=== PATIENT | female | born 1965 | race Caucasian/White ===

== ENCOUNTER 2019-11-27 10:02 | Emergency (ER) | payer BC ==
[2019-11-27] MEDS ORDERED: AMPICILLIN SOD/SULBACTAM 3 GM VIAL IV ONE (10:15)
[2019-11-27] MEDS ORDERED: OXYCODONE-ACETAMINOPHEN 5-325 MG TABLET PO ONE (10:15)
--- NOTE | 2019-11-27 10:17 | ER Document Report ---
ED Medical Screen (RME) - General Chief Complaint: Jaw Pain Stated Complaint: JAW PAIN Time Seen by Provider: 11/27/19 10:08 Primary Care Provider: NATALEE MEEKS MD [Primary Care Provider] - Follow up as needed Information source: Patient Notes: Patient presents complaining of left lower jaw dental pain for the past week. Patient states that she developed swelling yesterday that has worsened today. Patient complains of swelling to the left jaw and under the mandibular area and complains of difficulty swallowing. Patient states she has difficulty opening her mouth all the way. Patient states that she felt as though her airway was closing up at home which prompted her visit here today. Patient reports starting amoxicillin 3 days ago from her dental care provider. I have greeted and performed a rapid initial assessment of this patient. A comprehensive ED assessment and evaluation of the patient, analysis of test results and completion of the medical decision making process will be conducted by additional ED providers. TRAVEL OUTSIDE OF THE [place] IN LAST 30 DAYS: No - Related Data Allergies/Adverse Reactions: morphine Allergy (Verified 11/27/19 10:08) Physical Exam - General Notes: Patient with trismus, patient with swelling to the left submandibular and submental area with erythema noted to the anterior aspect of the neck. Patient able to manage oral secretions Doctor's Discharge - Discharge Referrals: NATALEE MEEKS MD [Primary Care Provider] - Follow up as needed
[2019-11-27 10:41] LABS: ABSOLUTE EOSINOPHILS # (AUTO) 0.2 10^3/uL (0.0-0.6); ABSOLUTE LYMPHOCYTES (AUTO) 1.4 10^3/uL (0.5-4.7); ABSOLUTE MONOCYTES (AUTO) 0.7 10^3/uL (0.1-1.4); ABSOLUTE NEUT (AUTO) 5.8 10^3/uL (1.7-8.2); BASOPHILS % (AUTO) 0.2 % (0-2); EOSINOPHILS % (AUTO) 1.9 % (0-6); HEMATOCRIT 39.2 % (36.0-47.0); HEMOGLOBIN 13.3 g/dL (12.0-15.5); LYMPHOCYTES % (AUTO) 17.5 % (13-45); MEAN CORPUSCULAR VOLUME 85 fl (80-97); MONOCYTES % (AUTO) 8.2 % (3-13); PLATELET COUNT 229 10^3/uL (150-450); RED CELL DISTRIBUTION WIDTH 14.7 % (11.5-14.0); SEGMENTED NEUTROPHILS % (AUTO) 72.2 % (42-78); TOTAL CELLS COUNTED % (AUTO) 100 %
[2019-11-27 11:04] LABS: ANION GAP 6 (5-19); BLOOD UREA NITROGEN 7 mg/dL (7-20); CALCIUM 9.1 mg/dL (8.4-10.2); CARBON DIOXIDE 29 mmol/L (22-30); CHLORIDE 103 mmol/L (98-107); GLUCOSE 114 mg/dL (75-110); POTASSIUM 4.3 mmol/L (3.6-5.0)
--- NOTE | 2019-11-27 11:54 | RADIOLOGY REPORT (SQ) ---
EXAM DESCRIPTION: CT SOFT TISSUE NECK WITH IMAGES COMPLETED DATE/TIME: 11/27/2019 11:35 am REASON FOR STUDY: dental infection, ?early ludwigs COMPARISON: None. TECHNIQUE: Post IV contrasted scanning from skull base through lung apices with review of bone, soft tissue and lung windows. Reconstructed coronal and sagittal MPR images reviewed. All images stored on PACS. All CT scanners at this facility use dose modulation, iterative reconstruction, and/or weight based d osing when appropriate to reduce radiation dose to as low as reasonably achievable (ALARA). [facility]: Dose Right [facility]: CareDose [facility]: Dose Right [facility]: Teradose 4D [facility]: [place] CONTRAST TYPE AND DOSE: contrast/concentration: Isovue 350.00 mg/ml; Total Contrast Delivered: 75.0 ml; Total Saline Delivered: 55.0 ml RENAL FUNCTION: GFR > 60. RADIATION DOSE: CT Rad equipment meets quality standard of care and radiation dose reduction techniq ues were employed. CTDIvol: 18.5 mGy. DLP: 584 mGy-cm. . LIMITATIONS: None. FINDINGS: SKULL BASE: Intact. MAJOR SALIVARY GLANDS: No solid or cystic masses. No inflammatory changes. LYMPHADENOPATHY: Several subcentimeter left submandibular nodes. No pathologically enlarged lymph no lili. MUCOSAL MASSES OR ASYMMETRY: Inflammatory changes in the sub mandibular fat to left of midline. No a bscess. LARYNX/CORDS: No abnormal findings. VASCULAR STRUCTURES: The major vessels are patent. LUNG APICES: Clear. BONES: Intact. THYROID: Normal size. No masses. PARANASAL SINUSES: Clear. OTHER: No other significant finding. IMPRESSION: Cellulitis. No evidence of abscess or airway compromise. TECHNICAL DOCUMENTATION: JOB ID: [id number] Quality ID # [id number]: Final reports with documentation of one or more dose reduction techniques (e.g., Au tomated exposure control, adjustment of the mA and/or kV according to patient size, use of iterative reconstruction technique) 2010 [employer]- All Rights Reserved Reading location - IP/workstation name: [email or web address]
[2019-11-27] MEDS ORDERED: CLINDAMYCIN 600 MG/D5W RTU 600 MG/50 ML RTUPB IV ONE (11:56)
[2019-11-27] MEDS ORDERED: KETOROLAC TROMETHAMINE INJ/PF 30 MG/1 ML SDV IV ONE (11:57)
--- NOTE | 2019-11-27 11:57 | ER Document Report ---
Entered by ELVIA HOFFMANN SCRIBE 11/27/19 1059 Acting as scribe for:JADE MATIAS MD ED Oral Problem - General Chief Complaint: Jaw Pain Stated Complaint: JAW PAIN Time Seen by Provider: 11/27/19 10:08 Primary Care Provider: NATALEE MEEKS MD [Primary Care Provider] - Follow up as needed Mode of Arrival: Ambulatory Information source: Patient Notes: This 54 year old female patient presents to the emergency department today with complaints of left sided jaw swelling with associated dental pain. Patient reports that this jaw swelling has been progressively getting worse since 11/19. Patient reports that she called her dentist and was started on antibiotics on but she has not gotten much relief. Patient denies fevers. TRAVEL OUTSIDE OF THE [place] IN LAST 30 DAYS: No - Related Data Allergies/Adverse Reactions: morphine Allergy (Verified 11/27/19 10:08) Past Medical History - General Information source: Patient - Social History Smoking Status: Current Every Day Smoker Cigarette use (# per day): Yes Frequency of alcohol use: None Drug Abuse: None Lives with: Family Family History: Reviewed & Not Pertinent Patient has suicidal ideation: No Patient has homicidal ideation: No Endocrine Medical History: Reports: Hx Diabetes Mellitus Type 2 Past Surgical History: Reports: Hx Adenoidectomy, Hx Gastric Bypass Surgery - Stanton-en-y, Hx Myringotomy, Hx Tonsillectomy Review of Systems - Review of Systems Constitutional: No symptoms reported EENT: See HPI, Mouth pain, Mouth swelling, Dental problem Cardiovascular: No symptoms reported Respiratory: No symptoms reported Gastrointestinal: No symptoms reported Genitourinary: No symptoms reported Female Genitourinary: No symptoms reported Musculoskeletal: No symptoms reported Skin: No symptoms reported Hematologic/Lymphatic: No symptoms reported Neurological/Psychological: No symptoms reported -: Yes All other systems reviewed and negative Physical Exam - Vital signs Vitals: Temp Pulse Resp BP Pulse Ox 99.0 F 88 16 115/83 96 11/27/19 10:06 11/27/19 10:06 11/27/19 10:06 11/27/19 10:06 11/27/19 10:06 Interpretation: Normal - General General appearance: Appears well, Alert - HEENT Head: Normocephalic, Atraumatic Eyes: Normal Pupils: PERRL Mouth/Lips: Other - Will only open mouth to about 2 cm of anterior teeth separation. The left lower first molar is very tender to percuss. There is some swelling to the gum tissue on either side of that molar. There is no obvious abscess palpated. Notes: Left mandible area over the lower first molar is swollen and tender. There is some swelling felt in the soft tissues underneath the mandible in the same location. - Respiratory Respiratory status: No respiratory distress Chest status: Nontender Breath sounds: Normal Chest palpation: Normal - Cardiovascular Rhythm: Regular Heart sounds: Normal auscultation Murmur: No - Abdominal Inspection: Normal Distension: No distension Bowel sounds: Normal Tenderness: Nontender Organomegaly: No organomegaly - Back Back: Normal, Nontender - Extremities General upper extremity: Normal inspection, Nontender, Normal ROM General lower extremity: Normal inspection, Nontender, Normal ROM - Neurological Neuro grossly intact: Yes Cognition: Normal Orientation: AAOx4 Norco Coma Scale Eye Opening: Spontaneous Dimitri Coma Scale Verbal: Oriented Dimitri Coma Scale Motor: Obeys Commands Norco Coma Scale Total: 15 Speech: Normal - Psychological Associated symptoms: Normal affect, Normal mood - Skin Skin Temperature: Warm Skin Moisture: Dry Skin Color: Normal Course - Vital Signs Vital signs: Temp Pulse Resp BP Pulse Ox 99 F 88 16 115/83 96 11/27/19 10:09 11/27/19 10:06 11/27/19 10:06 11/27/19 10:06 11/27/19 10:06 - Laboratory Result Diagrams: 11/27/19 10:22 11/27/19 10:22 Laboratory results interpreted by me: 11/27/19 11/27/19 10:22 10:22 RDW 14.7 H Glucose 114 H - Diagnostic Test Radiology reviewed: Image reviewed, Reports reviewed - Contrasted CT scan shows cellulitis with inflammatory changes in the submandibular fat to the left of the midline. There is no abscess seen. Discharge - Discharge Clinical Impression: Dental decay, Cellulitis of jaw, left Condition: Stable Disposition: HOME, SELF-CARE Additional Instructions: Dental Infection or Abscess You have an infection, perhaps an abscess (pus formation) of the gum around one of your teeth, which is probably decayed. If there is an abscess, it may drain on its own or it may need to be opened or lanced. Severe swelling or drainage around a tooth usually means a deep dental abscess which usually requ ires evaluation and treatment by a dentist or oral surgeon. Antibiotics may be prescribed while awaiting dental treatment. If you develop high fever with chills, worsening pain, or increasing sw elling in the area, see a dentist or oral surgeon immediately or return to the Emergency Department immediately. The CT scan did not show an abscess related to your involved tooth. There is considerable swelling and inflammatory changes in the soft tissues around the tooth suggesting cellulitis. We are going to change your antibiotic to clindamycin which is more appropriate for a deep space infection such as the one you have now. Stop taking the amoxicillin. Use warm soaks to the jaw. Follow-up with your dentist next week for recheck. RETURN TO THE EMERGENCY ROOM IF ANY NEW OR WORSENING SYMPTOMS. Prescriptions: Clindamycin HCl 300 mg PO QID #28 capsule Hydrocodone/Acetaminophen [Logan 5-325 mg Tablet] 1 tab PO ASDIR PRN #12 tablet PRN Reason: For Pain Referrals: NATALEE MEEKS MD [Primary Care Provider] - Follow up as needed I personally performed the services described in the documentation, reviewed and edited the documentation which was dictated to the scribe in my presence, and it accurately records my words and actions.
[2019-11-27 14:21] VITALS: BP 115/69
== END 2019-11-27 13:43 | disposition home or self-care (01) ==
LOC: ER 10:02
DX: L03.211 Cellulitis of face (principal); K08.9 Disorder of teeth and supporting structures, unspecified; Z88.6 Allergy status to analgesic agent
CPT/HCPCS: 99284; 96374; 96375; 96365; 96367; 36415; 87040; 85025; 80048; 70491; J0295; J1885

== ENCOUNTER 2019-11-28 10:58 | Emergency (ER) | payer BC ==
--- NOTE | 2019-11-28 11:17 | ER Document Report ---
ED Medical Screen (RME) - General Chief Complaint: Facial Swelling Stated Complaint: SWELLING FACE Time Seen by Provider: 11/28/19 11:14 Primary Care Provider: NATALEE MEEKS MD [Primary Care Provider] - Follow up as needed Mode of Arrival: Ambulatory Information source: Patient Notes: Patient is a 54-year-old female presenting to the emergency department chief complaint of facial swelling. Patient reports she was seen here yesterday, states that she received some medications which helped with her facial swelling, she was diagnosed with a dental infection. Patient reports swelling resumed today. She states she called her dentist who told her to come back to the emergency department for stronger antibiotics. Patient denies any fevers. She does report some difficulty swallowing. Patient speaking in full and complete sentences, swallowing her saliva without difficulty. I have greeted and performed a rapid initial assessment of this patient. A comprehensive ED assessment and evaluation of the patient, analysis of test results and completion of the medical decision making process will be conducted by additional ED providers. I have specifically instructed the patient or family members with the patient to immediately return to any nursing staff should anything change in the patient's condition or with their chief complaint. TRAVEL OUTSIDE OF THE [place] IN LAST 30 DAYS: No - Related Data Allergies/Adverse Reactions: morphine Allergy (Verified 11/27/19 10:08) Past Medical History Endocrine Medical History: Reports: Hx Diabetes Mellitus Type 2 Past Surgical History: Reports: Hx Adenoidectomy, Hx Gastric Bypass Surgery - Stanton-en-y, Hx Myringotomy, Hx Tonsillectomy Physical Exam - Vital signs Vitals: Temp Pulse Resp BP Pulse Ox 98.6 F 73 18 122/76 99 11/28/19 11:04 11/28/19 11:04 11/28/19 11:04 11/28/19 11:04 11/28/19 11:04 Course - Vital Signs Vital signs: Temp Pulse Resp BP Pulse Ox 98.6 F 73 18 122/76 99 11/28/19 11:04 11/28/19 11:04 11/28/19 11:04 11/28/19 11:04 11/28/19 11:04 Doctor's Discharge - Discharge Referrals: NATALEE MEEKS MD [Primary Care Provider] - Follow up as needed
[2019-11-28] MEDS ORDERED: KETOROLAC TROMETHAMINE INJ/PF 30 MG/1 ML SDV IV ONE (12:33)
[2019-11-28] MEDS ORDERED: CLINDAMYCIN 300 MG/D5W RTU 300 MG/50 ML RTUPB IV ONE (12:33)
--- NOTE | 2019-11-28 13:53 | ER Document Report ---
Entered by ELVIA HOFFMANN SCRIBE 11/28/19 1232 Acting as scribe for:JADE MATIAS MD ED Oral Problem - General Chief Complaint: Facial Swelling Stated Complaint: SWELLING FACE Time Seen by Provider: 11/28/19 11:14 Primary Care Provider: NATALEE MEEKS MD [Primary Care Provider] - Follow up as needed Mode of Arrival: Ambulatory Information source: Patient Notes: This 54 year old female patient presents to the emergency department today with complaints of left sided facial swelling. Patient was seen here yesterday and was diagnosed with a dental infection and she received IV clindamycin and IV Toradol which she states really seem to help the swelling and provided her a lot of relief. Patient states today the swelling is back so she decided to come in for the same treatment as yesterday. TRAVEL OUTSIDE OF THE [place] IN LAST 30 DAYS: No - Related Data Allergies/Adverse Reactions: morphine Allergy (Verified 11/27/19 10:08) Past Medical History - General Information source: Patient - Social History Smoking Status: Current Every Day Smoker Cigarette use (# per day): Yes Frequency of alcohol use: None Drug Abuse: None Lives with: Spouse/Significant other Family History: Reviewed & Not Pertinent Patient has suicidal ideation: No Patient has homicidal ideation: No Endocrine Medical History: Reports: Hx Diabetes Mellitus Type 2 Past Surgical History: Reports: Hx Adenoidectomy, Hx Gastric Bypass Surgery - Stanton-en-y, Hx Myringotomy, Hx Tonsillectomy Review of Systems - Review of Systems Constitutional: No symptoms reported EENT: See HPI, Mouth pain, Mouth swelling, Dental problem Cardiovascular: No symptoms reported Respiratory: No symptoms reported Gastrointestinal: No symptoms reported Genitourinary: No symptoms reported Female Genitourinary: No symptoms reported Musculoskeletal: No symptoms reported Skin: No symptoms reported Hematologic/Lymphatic: No symptoms reported Neurological/Psychological: No symptoms reported -: Yes All other systems reviewed and negative Physical Exam - Vital signs Vitals: Temp Pulse Resp BP Pulse Ox 98.6 F 73 18 122/76 99 11/28/19 11:04 11/28/19 11:04 11/28/19 11:04 11/28/19 11:04 11/28/19 11:04 - General General appearance: Appears well, Alert In distress: None - HEENT Mouth/Lips: Other - will only open mouth to about 2cm of anterior teeth separation. The left lower molar is tender to percuss. There is no real gum swelling appreciated today. No obvious abscess palpated. There is a lot less swelling and tenderness surrounding the left lower molar but there is submental swelling which appears to be due to gravity. - Cardiovascular Rhythm: Regular Heart sounds: Normal auscultation Murmur: No - Abdominal Inspection: Normal Distension: No distension - Extremities General upper extremity: Normal inspection, Nontender, Normal strength General lower extremity: Normal inspection, Nontender, Normal strength - Neurological Neuro grossly intact: Yes Cognition: Normal Orientation: AAOx4 - Psychological Associated symptoms: Normal affect, Normal mood - Skin Skin Temperature: Warm Skin Moisture: Dry Skin Color: Normal Course - Re-evaluation Re-evalutation: 11/28/19 13:53 Patient was sleeping. She states she only got 3 hours of sleep last night. She states she feels much better and actually feels like the swelling is going down again. I explained her that the only additional medication we gave that could have caused the relief she got with the Toradol. She will take ibuprofen 600 mg every 8 hours. She states she has an appointment with her dentist already established for Thursday, 2 days from now. - Vital Signs Vital signs: Temp Pulse Resp BP Pulse Ox 98.6 F 73 18 122/76 99 11/28/19 11:13 11/28/19 11:04 11/28/19 11:04 11/28/19 11:04 11/28/19 11:04 Discharge - Discharge Clinical Impression: Dental decay, Cellulitis of jaw, left Condition: Stable Disposition: HOME, SELF-CARE Additional Instructions: Continue the clindamycin and pain medication as prescribed. Take ibuprofen 600 mg every 8 hours for the anti-inflammatory effect. Use warm soaks to the painful jaw region. Call your dentist today to schedule a follow-up appointment. RETURN TO THE EMERGENCY ROOM IF ANY NEW OR WORSENING SYMPTOMS. Forms: Return to Work Referrals: NATALEE MEEKS MD [Primary Care Provider] - Follow up as needed I personally performed the services described in the documentation, reviewed and edited the documentation which was dictated to the scribe in my presence, and it accurately records my words and actions.
[2019-11-28 14:12] VITALS: BP 100/56
== END 2019-11-28 14:07 | disposition home or self-care (01) ==
LOC: ER 10:58
DX: L03.211 Cellulitis of face (principal); K04.7 Periapical abscess without sinus; R22.0 Localized swelling, mass and lump, head; F17.200 Nicotine dependence, unspecified, uncomplicated
CPT/HCPCS: 99282; 96375; 96365; J3490; J1885